=== PATIENT | female | born 1965 | race Caucasian/White ===

== ENCOUNTER → 2024-10-20 08:03 | Outpatient (REF) | payer OTHER, SELFPAY | LOC: HWRAD 08:03 | PROVIDERS: ATTENDING PHYSICIAN Otolaryngology Otolaryngology/Facial Plastic Surgery; FAMILY PHYSICIAN Family Medicine | DX: J32.0 Chronic maxillary sinusitis (principal) | CPT/HCPCS: 70486 ==

== ENCOUNTER → 2025-02-28 08:12 | Outpatient (REF) | payer OTHER, SELFPAY | LOC: RCS 08:12 | PROVIDERS: ATTENDING PHYSICIAN Internal Medicine Cardiovascular Disease; FAMILY PHYSICIAN Family Medicine | DX: Z95.0 Presence of cardiac pacemaker (principal); I44.30 Unspecified atrioventricular block; I44.2 Atrioventricular block, complete; I10 Essential (primary) hypertension; E78.2 Mixed hyperlipidemia | CPT/HCPCS: 93005; 93306 ==

== ENCOUNTER 2025-03-13 06:24 | Day surgery (SDC) | payer OTHER, SELFPAY ==
--- NOTE | 2025-03-03 09:01 | HPS.HSE ---
Family Physician
-
Family Physician: Bebeto Villafuerte
Chief Complaint
-
Presence of cardiac pacemaker. Complete heart block.
History of Present Illness
The patient is a 59 year old female presenting today for complete heart block. She would undergo a Medtronic dual chamber pacemaker insertion in 2015 secondary to this diagnosis. One pacemaker check several years ago revealed 2 minutes of
atrial fibrillation. Fortunately, atrial fibrillation has not been seen since and she remains off of oral anticoagulation. Her pacemaker has reached elective replacement indication. She will therefore undergo a Medtronic dual chamber pacemaker
generator change at this time. She denies any current complaints today such as chest pain, shortness of breath, palpitations, nausea, vomiting, diarrhea, lightheadedness, dizziness, cough, sore throat, or fever.
Medical History
Past Medical History
Past Medical History: Reports Other
Additional Past Medical History:
1. Presence of cardiac pacemaker.
2. Complete heart block.
3. Hypertension.
4. Hyperlipidemia.
5. Isolated atrial fibrillation, no current oral anticoagulation.
6. Mild-moderate aortic regurgitation.
7. Moderate tricuspid regurgitation.
8. Obstructive sleep apnea, noncompliant with CPAP.
9. Chronic sinusitis.
10. Non-insulin dependent diabetes.
11. GERD.
12. Colon polyps.
13. Cholelithiasis, asymptomatic.
14. Nephrolithiasis.
15. Right sided breast cancer, status post right partial mastectomy and lymph node dissection, 2018, and radiation; on Letrozole.
16. History of recurrent UTIs.
17. Rosacea.
18. Osteopenia.
19. Anxiety.
20. Insomnia.
21. Remote history of tobacco abuse.
22. Daily alcohol.
Past Surgical History: Reports Other
Additional Past Surgical History:
1. Medtronic dual chamber pacemaker implant.
2. Cardiac catheterization.
3. Carpal tunnel release.
4. Bilateral bunionectomy.
5. Right partial mastectomy and lymph node dissection.
6. Appendectomy.
7. Tonsillectomy.
8. Dental implantation.
9. Colonoscopy x4.
Social History
Tobacco: Former Smoker (She is a former up to 2 pack per day cigarette smoker who quit tobacco products altogether at 22 years of age. )
Alcohol: Daily (She consumes 2-3 glasses of wine per day.)
Personal:
Living: Other (She lives in a 2 story home with her . )
Family History
Family History: Not pertinent
Allergies / Home Medications
Allergy/Medication List:
Home medications:
1. Alprazolam 0.125 mg p.o. daily as needed.
2. Aspirin 81 mg p.o. at bedtime.
3. Doxycycline 40 mg p.o. at bedtime.
4. Letrozole 2.5 mg p.o. at bedtime.
5. Melatonin 5 mg p.o. at bedtime.
6. Ramipril 2.5 mg p.o. at bedtime.
7. Simvastatin 20 mg p.o. at bedtime.
8. Mounjaro 12.5 mg subcutaneous weekly.
9. Venlafaxine 37.5 mg p.o. at bedtime.
10. Reclast 5 mg IV as directed.
Allergies: No known allergies.
Review of Systems
-
A 12 point ROS was completed and negative except as noted: Yes
Physical Exam
Vital Signs
Blood pressure 125/81. Heart rate 79. Respirations 18. Pulse ox 99% on room air.
Height 5 feet, 8 inches. Weight 77.6 kg. BMI 26.0.
Physical Exam
General: Well Developed, Well Nourished and No Apparent Distress
HEENT: NormoCephalic, Moist mucous membranes, Atraumatic and PERRLA
Respiratory: Clear
Cardiac: Regular Rhythm and Other (Pacemaker site intact. )
GI: Soft, Non Tender and Non Distended
Musculoskeletal: No Edema and Normal Gait & Station
Skin: Warm and Dry
Neuro: AO x 3 and Nonfocal/grossly intact
Laboratory Results
-
DIAGNOSTIC STUDIES as of 03/03/2025: White blood cell count 5.3. Hemoglobin 14.5. Platelet count 275,000. Sodium 142. Potassium 4.6. BUN 15. Creatinine 0.6. Glucose 103. Calcium 10.3. AST 29. ALT 31. Albumin 4.7.
EKG 02/28/2025: Atrial-sensed ventricular-paced rhythm with prolonged AV conduction.
Echocardiogram 02/28/2025: LV ejection fraction is 55-60%. Wall motion is consistent with conduction abnormality. Cannot exclude mild basal inferior hypokinesis. Normal right ventricular size and function. Pacer wire seen in right ventricle. Aortic
sclerosis without stenosis. Mild to moderate aortic regurgitation. Moderate tricuspid regurgitation. Estimated pulmonary artery pressure of 20-25 mmHg. Compared to previous echo on 06/18/2021, aortic regurgitation is now noted. Progressive tricuspid
regurgitation is also noted (previously mild).
Cardiac catheterization 01/05/2020: Normal left ventricular function with ejection fraction of 58%. Normal coronary arteries.
Impression/Plan
-
IMPRESSION/PLAN:
1. Presence of cardiac pacemaker and complete heart block: The patient is in need of a Medtronic dual chamber pacemaker generator change with Dr. Quinn Rose on 03/13/2025. The benefits and risks of the procedure have been explained to the
patient. The patient understands these risks and wishes to proceed. She is aware to hold her home Mounjaro within one week of her procedure.
[2025-03-03 09:03] VITALS: BMI 26.0
[2025-03-03 09:23] LABS: % Basophils 0.6 % (0-2); % Immature Granulocytes 0.2 % (0-0.5); % Lymphocytes 25.2 % (20.5-51.1); % Monocytes 9.9 % (1.7-9.3); % Neutrophils 61.1 % (42.2-75.2); Absolute Eosinophils 0.2 10^3/uL (0-0.7); Absolute Lymphocytes 1.3 10^3/uL (1.2-3.4); Absolute Monocytes 0.5 10^3/uL (0.1-0.6); Absolute Neutrophils 3.2 10^3/uL (1.4-6.5); Hematocrit 41.8 % (37.0-47.0); Hemoglobin 14.5 g/dL (12.0-16.0); Mean Corp Hgb Conc. 34.7 g/dL (33.0-37.0); Mean Corpuscular Hgb 32.1 pg (27.0-31.0); Mean Corpuscular Volume 92.5 fL (81.0-99.0); Mean Platelet Volume 9.8 fL (7.4-10.4); Nucleated Red Blood Cells % 0 %; Platelet Count 275 10^3/uL (130-400); Red Blood Cell Count 4.52 10^6/uL (4.20-5.40); White Blood Cell Count 5.3 10^3/uL (4.8-10.8)
[2025-03-03 09:32] LABS: ALT (SGPT) 31 U/L (0-35); AST (SGOT) 29 U/L (14-36); Albumin 4.7 g/dl (3.5-5.0); Alkaline Phosphatase 54 U/L (38-126); Blood Urea Nitrogen 15 mg/dl (7-17); Calcium 10.3 mg/dl (8.4-10.2); Carbon Dioxide 27 mmol/L (22-30); Chloride 104 mmol/L (98-107); Estimated Creatinine Clearance 99 ml/min; Glucose 103 mg/dl (70-99); Potassium 4.6 mmol/L (3.5-5.1); Sodium 142 mmol/L (135-145); Total Bilirubin 1.1 mg/dl (0.2-1.3); Total Protein 7.5 g/dl (6.3-8.2); eGFR > 60.00
[2025-03-13 06:39] VITALS: BMI 25.7
[2025-03-13 06:44] VITALS: BP 120/71
[2025-03-13 06:46] VITALS: BP 120/71
[2025-03-13 07:06] LABS: Glucose - Point of Care 123 mg/dl (70-99)
[2025-03-13 09:01] VITALS: BP 117/58
--- NOTE | 2025-03-13 09:07 | ITS.CL.PACE ---
Licensed Therapist - Pacemaker Implant
Pacemaker Implant
Procedure Report:
Date of Procedure: March 13, 2025.
Procedures: Dual chamber pacemaker generator change. Pacemaker pulse generator explantation and pacemaker pulse generator implantation.
Indication: Pacemaker at [facility] from natural battery depletion. The pacemaker is for the treatment of nonreversible symptomatic bradycardia due to third degree atrioventricular block. The patient is pacemaker dependent.
Performing physician: Quinn Rose MD, [facility].
Implanted Pacemaker Pulse Generator: Medtronic; Model# W1DR01; Serial# [id number].
Explanted Pacemaker Pulse Generator (Implanted 07/24/2015): Medtronic; Model# [id number]; Serial# [id number].
Retained Leads (Implanted 07/24/2015):
RA Lead: Medtronic; Model# 5076-45cm; Serial# [id number].
RV Lead: Medtronic; Model# 5076-52cm; Serial# [id number].
Technique: A time out was performed. The procedure site was identified. The patient was anesthetized by the anesthesia service. Preoperative cefazolin was administered prior to skin incision. The patient was prepped and draped in the usual fashion.
Local anesthetic was applied to the left prepectoral subcutaneous tissue. A 3 inch incision was made over the pulse generator. The capsule was entered with Bovie cautery. The old pacemaker pulse generator was explanted. No Bovie cautery was applied
to the lead system. The leads were appropriately attached to the new device. The pocket was irrigated with antibiotic solution. Hemostasis was excellent. The device and leads were placed in the pocket. The incision was closed in three layers with
absorbable suture. Steri-strips and a silver impregnated dressing were applied. The estimated blood loss was 1 mL. There were no complications. No fluoroscopy.
Lead Analysis:
RA lead: P: 1.9 mV; Threshold: 0.5 V @ 0.4 ms; Impedance: 418 ohms.
RV lead: R: N/A; Threshold: 0.75 V @ 0.4 ms; Impedance: 513 ohms.
Final Programming: DDD 50 - 170 bpm.
Conclusion: Uncomplicated Medtronic pacemaker change. The pacemaker is MRI conditional.
Recommendation: Routine post pacemaker care.
cc: Sonny Oseguera MD and Bebeto Villafuerte MD.
[2025-03-13 09:15] VITALS: BP 108/63
[2025-03-13 09:30] VITALS: BP 104/65
[2025-03-13 09:45] VITALS: BP 99/63
== END 2025-03-13 10:00 | disposition home or self-care (01) ==
LOC: CATH 06:24
PROVIDERS: ATTENDING PHYSICIAN Internal Medicine Cardiovascular Disease; FAMILY PHYSICIAN Family Medicine; OTHER PHYSICIAN Internal Medicine Cardiovascular Disease
DX: Z45.010 Encounter for checking and testing of cardiac pacemaker pulse generator [battery] (principal); I44.2 Atrioventricular block, complete; I10 Essential (primary) hypertension; E78.5 Hyperlipidemia, unspecified; I48.91 Unspecified atrial fibrillation; I08.2 Rheumatic disorders of both aortic and tricuspid valves; G47.33 Obstructive sleep apnea (adult) (pediatric); J32.9 Chronic sinusitis, unspecified; E11.9 Type 2 diabetes mellitus without complications; Z79.84 Long term (current) use of oral hypoglycemic drugs; K21.9 Gastro-esophageal reflux disease without esophagitis; F41.9 Anxiety disorder, unspecified; Z87.440 Personal history of urinary (tract) infections; Z87.442 Personal history of urinary calculi; K80.20 Calculus of gallbladder without cholecystitis without obstruction; Z86.0100 Personal history of colon polyps, unspecified; Z85.3 Personal history of malignant neoplasm of breast; Z90.11 Acquired absence of right breast and nipple; L71.9 Rosacea, unspecified; M85.80 Other specified disorders of bone density and structure, unspecified site; G47.00 Insomnia, unspecified; Z87.891 Personal history of nicotine dependence; Z90.89 Acquired absence of other organs; Z79.82 Long term (current) use of aspirin; Z79.811 Long term (current) use of aromatase inhibitors; Z79.85 Long-term (current) use of injectable non-insulin antidiabetic drugs; Z79.899 Other long term (current) drug therapy
CPT/HCPCS: 33228; 36415; 80053; 82962; 85025; C1785

== ENCOUNTER 2025-11-17 08:31 | Emergency (ER) | payer OTHER, SELFPAY ==
[2025-11-17 08:38] VITALS: BP 124/78
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
--- NOTE | 2025-11-17 09:40 | EDRN ---
Sling applied to right arm
== END 2025-11-17 09:40 | disposition home or self-care (01) ==
LOC: EMR 08:31
PROVIDERS: EMERGENCY PHYSICIAN Emergency Medicine; FAMILY PHYSICIAN Family Medicine
DX: S43.401A Unspecified sprain of right shoulder joint, initial encounter (principal); W19.XXXA Unspecified fall, initial encounter; Y92.009 Unspecified place in unspecified non-institutional (private) residence as the place of occurrence of the external cause; E11.9 Type 2 diabetes mellitus without complications; E78.00 Pure hypercholesterolemia, unspecified; I10 Essential (primary) hypertension; I48.91 Unspecified atrial fibrillation; Z82.49 Family history of ischemic heart disease and other diseases of the circulatory system; Z85.3 Personal history of malignant neoplasm of breast; Z87.440 Personal history of urinary (tract) infections; Z87.891 Personal history of nicotine dependence; Z95.0 Presence of cardiac pacemaker
CPT/HCPCS: 99283; 73030